=== PATIENT | male | born 1985 | race Caucasian/White ===

== ENCOUNTER 2019-07-16 18:34 | Emergency (ER) | payer OTHER, SELFPAY ==
[2019-07-16 18:35] VITALS: BP 128/76; PULSE 107; RESP 16; TEMP 36.8; O2SAT 98; BMI 35.3
--- NOTE | 2019-07-16 18:44 | RAD_ITS ---
STUDY: X-RAY - LEFT ANKLE REASON FOR EXAM: Male, 33 years old. Pain and swelling after stepping in a hole. TECHNIQUE: 3 view(s) of the ankle. COMPARISON: None. FINDINGS: Small in size minimally displaced acute fracture through the lateral tip of the lateral malleolus with adjacent soft tissue swelling. No other fracture. No dislocation. Normal bony mineralization. Mild degenerative changes. RAD/Ankle min 3 Views IMPRESSION: Small in size minimally displaced acute fracture through the lateral tip of the lateral malleolus with adjacent soft tissue swelling. Electronically Signed: Marlon Jorgensen, at 19:11 EDT Tel , Service support ,
--- NOTE | 2019-07-16 18:45 | ED.DCSUM_ITS ---
History of Present Illness Chief Complaint: Lower Extremity Injury Detail of Chief Complaint: Left ankle injury Informant: Patient Onset: Today Context: Sudden Onset Current Severity: Moderate Maximum Severity: Moderate Narrative: Patient presents with pain to the left ankle. He states he rolled his left ankle in a hole just prior to arrival. He has not really been able to weight- bear on his left leg. He denies any other injury. He has not yet taken anything for pain. Past Medical History - Allergies and Home Meds Allergies/Adverse Reactions: Allergies amoxicillin [From Augmentin] Allergy (Verified 07/16/19 18:38) Rash clavulanic acid [From Augmentin] Allergy (Verified 07/16/19 18:38) Rash Penicillins Allergy (Verified 07/16/19 18:38) Anaphylaxis Primary Care Physician: Josh Moore MD [Primary Care Provider] - Prior records reviewed: Yes Past Medical History: - - Reviewed Smoking Status: Former smoker Review of Systems General: Denies: Chills, Fever Eyes: Denies: Visual changes - bilaterally ENT: Denies: Bilateral ear pain Cardiovascular: Denies: Chest pain Respiratory: Denies: Dyspnea, Cough Musculoskeletal: Reports: Swelling, Extremity Pain. Denies: Back pain Skin: Reports: Abrasions Neurological: Denies: Parasthesia, Numbness Hematologic: Reports: Easy bruising, Easy bleeding Allergy: Reports: Uticaria Physical Exam Vital Signs/Narrative: Vital Signs Temp Pulse Resp BP Pulse Ox 07/16/19 18:35 98.3 F 107 H 16 128/76 H 98 Inital Vital Signs reviewed: Yes General: Well nourished, Well developed Head: Normocephalic ENT: Moist mucous membranes Neck: Supple Cardiovascular: Regular rate, Regular rhythm Respiratory: No distress, CTA bilaterally Abdomen: Soft, Nontender Extremities: - - Tenderness palpation with moderate edema to the lateral malleolus the left ankle. No tenderness over the foot itself. No tenderness of the medial malleolus. No tenderness of the knee or proximal fibula. Skin: - - Superficial abrasions to the anterior right knee without bony tenderness. Neurological: Alert, Oriented x3, Normal Strength, Normal Sensation Psychological: Normal affect Diagnostic/Tx/Re-eval Impressions Ankle X-Ray 07/16/19 18:44 IMPRESSION: Small in size minimally displaced acute fracture through the lateral tip of the lateral malleolus with adjacent soft tissue swelling. Electronically Signed: Marlon Jorgensen, at 19:11 EDT Tel , Service support , 07/16/19 18:44 Ankle min 3 Views [RAD] Stat - Medical Decision Making Patient was given naproxen here. Ankle was iced and elevated. X-rays are reviewed with the patient. He has a very tiny pull off on the distal tip of the lateral malleolus. He will treated with a stirrup splint and crutches. He will be referred to Dr. Seymour for follow-up. ED Disposition - Plan for ED Patient: Disposition: Home or Assisted Living Diagnosis: Avulsion fracture of ankle Instructions: ANKLE FRACTURE (Distal Fibula), closed Prescriptions: Naproxen [Naprosyn] 500 mg PO BID PRN PRN #20 tablet PRN Reason: Pain Score 1-10/10 Referrals: Saravanan Seymour DO [STAFF PHYSICIAN] - 1 Week if not improving
[2019-07-16] MEDS: Naproxen 500 MG Tablet PO (19:05)
== END 2019-07-16 19:37 | disposition home or self-care (01) ==
LOC: ED 19:26
PROVIDERS: Emergency Provider Emergency Medicine; Family Provider Family Medicine; PCP Family Medicine
DX: S82.62XA Displaced fracture of lateral malleolus of left fibula, initial encounter for closed fracture (principal); X50.1XXA Overexertion from prolonged static or awkward postures, initial encounter; Y92.89 Other specified places as the place of occurrence of the external cause; Y99.9 Unspecified external cause status; Z88.0 Allergy status to penicillin; Z87.891 Personal history of nicotine dependence
CPT/HCPCS: 73610; 99284

== ENCOUNTER → 2025-06-01 | Outpatient (CLI) | payer OTHER, SELFPAY ==
[2025-06-01 18:04] LABS: Hematocrit 45.3 % (40-54); Hemoglobin 15.6 g/dL (13.0-16.5); Immature Granulocytes Count 0.030 X10^3/uL (0.0-0.0); Mean Corp Hgb Conc 34.4 g/dL (32-36); Mean Corpuscular Volume 90.8 fL (80-94); Mean Platelet Vol. 10.1 fl (6.2-12.0); NRBC Flagged by Analyzer 0 % (0-5); Platelet Count 216 K/mm3 (150-450); RBC Distribution Width CV 12.4 % (11.6-14.6); RBC Distribution Width SD 41.0 fl (35.1-43.9); Red Blood Count 4.99 M/mm3 (4.6-6.2); White Blood Count 9.5 K/mm3 (4.4-11.0)
[2025-06-01 18:45] LABS: AST(SGOT) 26 U/L (<=37); Alanine Aminotransfer ALT/SGPT 36 U/L (<=46); Albumin, Serum 4.3 g/dL (3.5-5.0); Alkaline Phosphatase 48 U/L (40-129); Anion Gap 10 (5-15); BUN 20 mg/dL (4-19); BUN/Creat Ratio 19.5 RATIO (10-20); Calcium,Total 9.4 mg/dL (7.6-11.0); Carbon Dioxide 27.2 mmol/L (21.0-32.0); Chloride 104 mmol/L (98-108); Globulin 2.6 g/dL (2.2-4.2); Glucose 115 mg/dL (70-99); Potassium 3.9 mmol/L (3.3-5.1); Vitamin D,25 Hydroxy 20.9 ng/mL (30-100)
== END | disposition home or self-care (01) ==
PROVIDERS: PCP Family Medicine; Referring Provider Family Medicine; Visit Provider Family Medicine
DX: R73.09 Other abnormal glucose (principal); R53.83 Other fatigue
CPT/HCPCS: 36415; 80053; 82306; 83036; 84439; 84443; 85025